=== PATIENT | male | born 1995 | race Caucasian/White ===

== ENCOUNTER 2017-05-10 11:33 | Emergency (ER) | payer OTHER ==
[~2017-05-10] VITALS: Ht 167.6 cm; Wt 73.0 kg
[2017-05-10] MEDS ORDERED: IBUPROFEN 800MG TABLET PO ONE (16:15)
[2017-05-10 17:41] VITALS: BP 124/69
== END 2017-05-10 17:48 | disposition home or self-care (01) ==
LOC: ER 11:46
DX: M94.0 Chondrocostal junction syndrome [Tietze] (principal)
CPT/HCPCS: 93005; 99283